=== PATIENT | male | born 1995 | race Asian ===

== ENCOUNTER → 2025-01-27 | Outpatient (CLI) | payer MEDICAID, SELFPAY | END | disposition home or self-care (01) | PROVIDERS: PCP Family Medicine | DX: N46.9 Male infertility, unspecified (principal) ==

== ENCOUNTER → 2025-02-01 | Outpatient (CLI) | payer MEDICAID, SELFPAY ==
[2025-02-01 08:37] LABS: Motl CLS 2 60
[2025-02-01 08:39] LABS: % Variance Motility 0 %; Motl CLS 1 60; Sperm Motility 60 % (>=50)
[2025-02-01 08:40] LABS: Room Temperature 23 (20-27C (Area))
[2025-02-01 10:10] LABS: Count Side 1 4
[2025-02-01 10:11] LABS: % Variance 20 %; Count Side 2 5; Sperm Count 4 Million (20-50)
== END | disposition home or self-care (01) ==
PROVIDERS: PCP Family Medicine
DX: N46.9 Male infertility, unspecified (principal)
CPT/HCPCS: 89310